=== PATIENT | male | born 1995 | race Two or more races ===

== ENCOUNTER 2021-05-17 21:23 | Emergency (ER) | payer SELFPAY ==
[~2021-05-17] VITALS: Ht 165.1 cm; Wt 81.6 kg
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
[2021-05-17] MEDS ORDERED: HYDROCODONE/APAP 5/325MG TABLET ONE (22:24)
[2021-05-17] MEDS ORDERED: HYDROCODONE/APAP 5/325MG TABLET PO ONE (22:30)
[2021-05-17] MEDS ORDERED: HYDR-3972 PO (23:09)
--- NOTE | 2021-05-17 23:21 | NUR ---
PT WAS PROVIDED WITH L KNEE IMMOBILIZER AND CRUTCHES WITH INSTRUCTIONS OF HOW TO USE THE CRUTCHES,
--- NOTE | 2021-05-17 23:30 | NUR ---
Patient discharged to home in stable condition. Written and verbal after care instructions given. Patient verbalizes understanding of instruction. Pt ambulatory with a steady crutch gait
[2021-05-17 23:36] VITALS: BP 140/70
== END 2021-05-17 23:30 | disposition home or self-care (01) ==
LOC: ER 21:26
DX: S82.492A Other fracture of shaft of left fibula, initial encounter for closed fracture (principal); S80.212A Abrasion, left knee, initial encounter; V89.2XXA Person injured in unspecified motor-vehicle accident, traffic, initial encounter; Y93.89 Activity, other specified; Y92.89 Other specified places as the place of occurrence of the external cause; Y99.8 Other external cause status
CPT/HCPCS: 73700-TC